=== PATIENT | male | born 1995 | race Caucasian/White ===

== ENCOUNTER 2018-05-04 13:45 | Emergency (ER) | payer MEDICAID ==
[~2018-05-04] VITALS: Ht 162.6 cm; Wt 105.2 kg
[2018-05-04 13:50] VITALS: Ht 162.6 cm; Wt 105.2 kg
[2018-05-04 18:26] VITALS: BP 131/87
== END 2018-05-04 18:26 | disposition home or self-care (01) ==
LOC: ED 13:45
DX: S13.4XXA Sprain of ligaments of cervical spine, initial encounter (principal); E66.01 Morbid (severe) obesity due to excess calories; I10 Essential (primary) hypertension; G89.29 Other chronic pain; Z68.39 Body mass index [BMI] 39.0-39.9, adult; V87.8XXA Person injured in other specified noncollision transport accidents involving motor vehicle (traffic), initial encounter; Y93.55 Activity, bike riding; Y92.488 Other paved roadways as the place of occurrence of the external cause; Y99.8 Other external cause status